=== PATIENT | female | born 1975 | race Caucasian/White ===

== ENCOUNTER 2016-11-14 15:58 | Emergency (ER) | payer MEDICAID ==
[~2016-11-14] VITALS: Ht 165.1 cm; Wt 89.8 kg
[~2016-11-14 15:58] MED LIST: AMLO5TAB PO; COREG 12.5 MG12.5 MG PO; FLONASE ALLERG9.9 ML NS; MEDROL 4MG. DOSE4 MG PO; PRAVASTATIN 40M40 MG PO; PROTONIX 40MG T40 MG PO; ZESTORETIC 12.51 TA1 PO; ZESTORETIC 20-1 EACH PO; ZITHROMAX Z-PA250 M2 PO
--- NOTE | 2016-11-14 16:31 | Emergency Room Report ---
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 N Clinical Suspician of Infection? N Mental Status: 1 - Regular (Normal Baseline) Sepsis Risk:Low Sepsis Risk Have you (or family members/close friends) recently traveled outside the [place]? N If Yes, where/when: Have you had exposure to infectious disease within the past month? TB? Other? Specify: Comment The patient fell down some steps at 10:30 this morning landing on her bottom. She states initially she thought she was just "stoved up". But as the day has progressed she has developed swelling and bruising in her LEFT buttock area. She says initially she had some numbness of her LEFT leg immediately after the fall, but that went away. No numbness or weakness now. She tried ibuprofen without improvement. ALLERGIES Coded Allergies: cefaclor (From CECLOR) (Intermediate, I-RASH 11/14/16) Home Medications Active Scripts Azithromycin (Zithromax) 250 MG PO DAILY 5 Days Prov: 10/25/16 Fluticasone Propionate (Flonase Allergy Relief) 9.9 ML NS DAILY 14 Days Prov: 10/25/16 Methylprednisolone (Medrol Dose Abad) 4 MG PO UD #1 ABAD Prov: 10/25/16 Carvedilol (Coreg 12.5Mg) 12.5 MG PO BID 10 Days Prov: 10/25/16 Lisinopril/Hydrochlorothiazide (Zestoretic 20-12.5 MG Tablet) 1 EACH PO DAILY 10 Days Prov: 10/25/16 Reported Medications Carvedilol (Coreg 12.5Mg) 12.5 MG PO BID Hydrochlorothiazide/Lisinopr (Zestoretic 12.5 Mg-20 Mg) 1 TAB PO DAILY History Medical History General CAD? No Angina: Yes [place]: No Hypertension? Yes Hyperlipidemia? Yes CHF? No DVT? No PE? No COPD? No Asthma? No Anemia? No GERD? No Gastric ulcers? No GI Bleed? No Hernia? No Thyroid Problems? No Hypothyroidism? No CVA? No Seizures? No Diabetes? No Renal Insuffiency? No End Stage Renal Disease? No UTI? No Stones? No BPH? No GB Disease: Yes Nephritic Syndrome? No Asplenia? No Hepatitis? No Sickle Cell Disease? No Arthritis? No Migraines? No Cataracts? No Glaucoma? No MRSA? No HIV? No TB? No Anxiety? Yes Depression? Yes Cancer? No More? 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 Family History Family Hx Diabetes No CAD Yes Hypertension Yes Hyperlipidemia Yes Cancer No TB No Social History Smoking Hx Smoker: Never Smoker Tobacco: No Type N/A Are you/the child exposed to second-hand smoke: No Alcohol Alcohol: No Review of Systems All Other Systems Reviewed and Negative Musculoskeletal back pain, joint pain Physical Exam Vital Signs Vital Signs Date Time Temp Pulse Resp B/P Pulse O2 O2 Flow FiO2 Ox Delivery Rate 11/14 1806 98.1 95 20 147/96 100 11/14 1736 83 20 138/87 100 11/14 1656 20 11/14 1605 98.3 85 18 145/86 100 General Appearance no apparent distress Respiratory Status No: respiratory distress. Cardiovascular regular rate/rhythm, normal peripheral pulses Extremities purple ecchymosis, edema, and tenderness predominantly over the LEFT buttock area. Small amount extends over the sacrum where there is also tenderness. No tenderness of the lumbar spine cephalad to this., no shortening or malrotation of the LEFT lower extremity., his toe pulses, capillary refill, and sensation intact. Neurologic alert, no motor/sensory deficits Medical Decision Making LABS/Meds/Orders Pt receiving controlled substance in ED? Yes Micky was queried for this patient? Yes Comment [id number] 0 rxs. Results/Orders Current Medication Orders Sig/Bony Start time Last Medication Dose Route Stop Time Status Admin Hydrocodone Bitart/ 0 .STK-MED ONE 11/14 1653 DC Acetaminophen PO Hydrocodone Bitart/ 1 TAB ONCE ONE 11/14 1645 DC 11/14 Acetaminophen PO 11/14 1646 1656 Orders Procedure Date/time Status SACRUM AND COCCYX 11/14 164 Active HIP LT 2-3V W/PELVIS IF PERFOR 11/14 1641 Active XRAY/CT/US XRAY/CT/US XRAY hip, sacrum, coccyx Comment Hip X-ray interpreted by Charan Abraham MD. Negative for fracture, dislocation, or foreign body. Sacrum and coccyx X-ray interpreted by Charan Abraham MD. Negative for fracture , dislocation, or subluxation. Departure Departure Disposition DC Home or Self Care(routine) Clinical Impression Primary Impression: Traumatic hematoma of buttock Qualifiers: Encounter type: initial encounter Qualified Code: S30.0XXA - Contusion of lower back and pelvis, initial encounter Condition STABLE Referrals Kehinde Alexander MD (PCP/Family) Patient Instructions DI for Hematoma (Bruise) Additional Instructions Rest, ice for pain and swelling. Additional instructions for EXTREMITY PAIN: See your physician as soon as possible for further evaluation. Return to an emergency department immediately if you have uncontrollable pain, loss of feeling or inability to move your injured extremity. Prescriptions Current Visit Scripts HYDROCODONE/ACETAMINOPHEN ([place] 5-325 Tablet) 1 TAB PO Q6HP PRN pain #15 TAB ED Critical Care Critical Care No at 2514
--- NOTE | 2016-11-14 16:31 | Emergency Room Report ---
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 N Clinical Suspician of Infection? N Mental Status: 1 - Regular (Normal Baseline) Sepsis Risk:Low Sepsis Risk Have you (or family members/close friends) recently traveled outside the [place]? N If Yes, where/when: Have you had exposure to infectious disease within the past month? TB? Other? Specify: Comment The patient fell down some steps at 10:30 this morning landing on her bottom. She states initially she thought she was just "stoved up". But as the day has progressed she has developed swelling and bruising in her LEFT buttock area. She says initially she had some numbness of her LEFT leg immediately after the fall, but that went away. No numbness or weakness now. She tried ibuprofen without improvement. ALLERGIES Coded Allergies: cefaclor (From CECLOR) (Intermediate, I-RASH 11/14/16) Home Medications Active Scripts Azithromycin (Zithromax) 250 MG PO DAILY 5 Days Prov: 10/25/16 Fluticasone Propionate (Flonase Allergy Relief) 9.9 ML NS DAILY 14 Days Prov: 10/25/16 Methylprednisolone (Medrol Dose Abad) 4 MG PO UD #1 ABAD Prov: 10/25/16 Carvedilol (Coreg 12.5Mg) 12.5 MG PO BID 10 Days Prov: 10/25/16 Lisinopril/Hydrochlorothiazide (Zestoretic 20-12.5 MG Tablet) 1 EACH PO DAILY 10 Days Prov: 10/25/16 Reported Medications Carvedilol (Coreg 12.5Mg) 12.5 MG PO BID Hydrochlorothiazide/Lisinopr (Zestoretic 12.5 Mg-20 Mg) 1 TAB PO DAILY History Medical History General CAD? No Angina: Yes CT: No Hypertension? Yes Hyperlipidemia? Yes CHF? No DVT? No PE? No COPD? No Asthma? No Anemia? No GERD? No Gastric ulcers? No GI Bleed? No Hernia? No Thyroid Problems? No Hypothyroidism? No CVA? No Seizures? No Diabetes? No Renal Insuffiency? No End Stage Renal Disease? No UTI? No Stones? No BPH? No GB Disease: Yes Nephritic Syndrome? No Asplenia? No Hepatitis? No Sickle Cell Disease? No Arthritis? No Migraines? No Cataracts? No Glaucoma? No MRSA? No HIV? No TB? No Anxiety? Yes Depression? Yes Cancer? No More? 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 Family History Family Hx Diabetes No CAD Yes Hypertension Yes Hyperlipidemia Yes Cancer No TB No Social History Smoking Hx Smoker: Never Smoker Tobacco: No Type N/A Are you/the child exposed to second-hand smoke: No Alcohol Alcohol: No Review of Systems All Other Systems Reviewed and Negative Musculoskeletal back pain, joint pain Physical Exam Vital Signs Vital Signs Date Time Temp Pulse Resp B/P Pulse O2 O2 Flow FiO2 Ox Delivery Rate 11/14 1806 98.1 95 20 147/96 100 11/14 1736 83 20 138/87 100 11/14 1656 20 11/14 1605 98.3 85 18 145/86 100 General Appearance no apparent distress Respiratory Status No: respiratory distress. Cardiovascular regular rate/rhythm, normal peripheral pulses Extremities purple ecchymosis, edema, and tenderness predominantly over the LEFT buttock area. Small amount extends over the sacrum where there is also tenderness. No tenderness of the lumbar spine cephalad to this., no shortening or malrotation of the LEFT lower extremity., his toe pulses, capillary refill, and sensation intact. Neurologic alert, no motor/sensory deficits Medical Decision Making LABS/Meds/Orders Pt receiving controlled substance in ED? Yes Micky was queried for this patient? Yes Comment [id number] 0 rxs. Results/Orders Current Medication Orders Sig/Bony Start time Last Medication Dose Route Stop Time Status Admin Hydrocodone Bitart/ 0 .STK-MED ONE 11/14 1653 DC Acetaminophen PO Hydrocodone Bitart/ 1 TAB ONCE ONE 11/14 1645 DC 11/14 Acetaminophen PO 11/14 1646 1656 Orders Procedure Date/time Status SACRUM AND COCCYX 11/14 164 Active HIP LT 2-3V W/PELVIS IF PERFOR 11/14 1641 Active XRAY/CT/US XRAY/CT/US XRAY hip, sacrum, coccyx Comment Hip X-ray interpreted by Charan Abraham MD. Negative for fracture, dislocation, or foreign body. Sacrum and coccyx X-ray interpreted by Charan Abraham MD. Negative for fracture , dislocation, or subluxation. Departure Departure Disposition DC Home or Self Care(routine) Clinical Impression Primary Impression: Traumatic hematoma of buttock Qualifiers: Encounter type: initial encounter Qualified Code: S30.0XXA - Contusion of lower back and pelvis, initial encounter Condition STABLE Referrals Kehinde Alexander MD (PCP/Family) Patient Instructions DI for Hematoma (Bruise) Additional Instructions Rest, ice for pain and swelling. Additional instructions for EXTREMITY PAIN: See your physician as soon as possible for further evaluation. Return to an emergency department immediately if you have uncontrollable pain, loss of feeling or inability to move your injured extremity. Prescriptions Current Visit Scripts HYDROCODONE/ACETAMINOPHEN ([place] 5-325 Tablet) 1 TAB PO Q6HP PRN pain #15 TAB ED Critical Care Critical Care No at 0291
[2016-11-14] MEDS ORDERED: NORCO 325 MG-51 TAB PO (17:33)
[2016-11-14 18:06] VITALS: BP 147/96
--- NOTE | 2016-11-15 06:49 | RADIOLOGY REPORT PS360 ---
SACRUM AND COCCYX HISTORY: Pain around the left SI joint fell ORDERING PHYSICIAN: Charan Abraham MD PATIENT AGE: 41 years COMPARISON: None FINDINGS: Prior tubal ligation. No fracture or dislocation. No lytic or blastic change or significant arthritic change evident. IMPRESSION: No acute finding
--- NOTE | 2016-11-15 06:50 | RADIOLOGY REPORT PS360 ---
HIP LT 2-3V W/PELVIS IF PERFOR HISTORY: Pain following injury fell ORDERING PHYSICIAN: Charan Abraham MD PATIENT AGE: 41 years COMPARISON: None FINDINGS: No fracture or dislocation is evident. No significant degenerative change. No lytic or blastic change. Unremarkable soft tissues IMPRESSION: Negative left hip
== END 2016-11-14 18:06 | disposition home or self-care (01) ==
LOC: ER 15:58
DX: S30.0XXA Contusion of lower back and pelvis, initial encounter (principal); Z88.1 Allergy status to other antibiotic agents; Z79.899 Other long term (current) drug therapy; I10 Essential (primary) hypertension; E78.5 Hyperlipidemia, unspecified; F41.8 Other specified anxiety disorders; W10.9XXA Fall (on) (from) unspecified stairs and steps, initial encounter; Y92.019 Unspecified place in single-family (private) house as the place of occurrence of the external cause